=== PATIENT | female | born 1970 ===

== ENCOUNTER → 2024-05-16 | Outpatient (CLI) | payer MEDICARE ==
[2024-05-16 16:13] LABS: Protein, Total 6.2 g/dL (6.2-8.2)
[2024-05-17 10:29] LABS: Angiotensin-1 Converting Enz. 32 U/L (8-52)
[2024-05-17 12:29] LABS: Zinc, Serum 79 ug/dL (60-130)
== END | disposition home or self-care (01) ==
LOC: LABWHC1 12:50
PROVIDERS: ATTEND Psychiatry & Neurology Neurology
DX: G62.9 Polyneuropathy, unspecified (principal)
CPT/HCPCS: 36415; 82164; 82525; 82550; 82607; 82784; 84165; 84207; 84425; 84443; 84446; 84630; 86038; 86235